=== PATIENT | female | born 1935 | race Caucasian/White ===

== ENCOUNTER 2017-05-30 11:06 | Emergency (ER) | payer OTHER ==
[~2017-05-30] VITALS: Ht 157.5 cm; Wt 49.0 kg
[~2017-05-30 11:06] MED LIST: ALPHAGAN1 OP; AMI200 PO; ASPI-1063 PO; ATEN-41 PO; BIMA2.5D5 OP; CALC-619 PO; CHOL200010 PO; CYAI1000 PO; FOLI-43 PO; FURO-149 PO; HYDR4TAB26 PO; ISOS20TA8 PO; LEVO150C2 PO; LOVA20TA2 PO; MECL25TA3 PO; MULT1CAP34 PO; NITR0.4T6 SL; PRO40 PO; TOFA5TAB PO
[2017-05-30 11:10] VITALS: BP_SYST 125
[2017-05-30] MEDS: DIPH-TET-PERTUS Vaccine 0.5 ML VIAL (ADACEL) IM ONE (11:31)
[2017-05-30] MEDS: BACITRACIN 1 GM OINT TP ONE (11:35)
[2017-05-30] MEDS: NAPROXEN 250 MG TABLET PO SCH (12:31)
[2017-05-30] MEDS: LIDOCAINE/EPI 1% 1:100000 20 ML VIAL IJ ONE (12:32)
[2017-05-30 13:40] VITALS: BP_SYST 122
== END 2017-05-30 13:40 | disposition home or self-care (01) ==
LOC: SED 11:06
DX: S01.01XA Laceration without foreign body of scalp, initial encounter (principal); M54.2 Cervicalgia; K21.9 Gastro-esophageal reflux disease without esophagitis; I10 Essential (primary) hypertension; M06.9 Rheumatoid arthritis, unspecified; Z95.1 Presence of aortocoronary bypass graft; Z79.82 Long term (current) use of aspirin; Z79.899 Other long term (current) drug therapy; Z88.0 Allergy status to penicillin; Z88.2 Allergy status to sulfonamides; Z88.5 Allergy status to narcotic agent; Z88.6 Allergy status to analgesic agent; W18.30XA Fall on same level, unspecified, initial encounter; Y93.01 Activity, walking, marching and hiking; Y92.009 Unspecified place in unspecified non-institutional (private) residence as the place of occurrence of the external cause; Y99.8 Other external cause status
CPT/HCPCS: 70450-TC; 72125-TC; 90715; 99284

== ENCOUNTER 2017-09-22 12:41 | Emergency (ER) | payer OTHER ==
[~2017-09-22] VITALS: Ht 160 cm; Wt 53.5 kg
[2017-09-22 12:50] VITALS: BP_SYST 130
[2017-09-22 13:07] VITALS: BP_SYST 130
== END 2017-09-22 13:07 | disposition home or self-care (01) ==
LOC: SED 12:41
DX: S80.811A Abrasion, right lower leg, initial encounter (principal); L03.115 Cellulitis of right lower limb; K21.9 Gastro-esophageal reflux disease without esophagitis; I10 Essential (primary) hypertension; M06.9 Rheumatoid arthritis, unspecified; Z90.89 Acquired absence of other organs; Z90.49 Acquired absence of other specified parts of digestive tract; Z98.84 Bariatric surgery status; Z79.899 Other long term (current) drug therapy; Z88.0 Allergy status to penicillin; Z88.2 Allergy status to sulfonamides; Z88.5 Allergy status to narcotic agent; Z88.6 Allergy status to analgesic agent; Z86.79 Personal history of other diseases of the circulatory system; Z79.82 Long term (current) use of aspirin; W01.0XXA Fall on same level from slipping, tripping and stumbling without subsequent striking against object, initial encounter; Y93.89 Activity, other specified; Y92.89 Other specified places as the place of occurrence of the external cause; Y99.8 Other external cause status
CPT/HCPCS: 99283